=== PATIENT | male | born 1995 | race Caucasian/White ===

== ENCOUNTER → 2023-12-30 | Outpatient (CLI) | payer BC ==
[2023-12-30 22:05] LABS: BUN/Creat Ratio 7.73 Ratio (12.00-20.00); Blood Urea Nitrogen 8.5 mg/dL (9.0-27.0); Chol/HDL Ratio 4.42 Ratio; Glucose 81 mg/dL (70-110); LDL Cholesterol,Calculated 122.2 mg/dL (0.0-131.0)
[2023-12-30 22:06] LABS: ALT 10 U/L (10-49); AST 17 U/L (14-35); Albumin 4.3 g/dL (3.8-4.9); Albumin/Globulin Ratio 1.95 Ratio (1.60-3.17); Alkaline Phosphatase 58 U/L (41-126); Calcium 9.2 mg/dL (8.7-10.3); Carbon Dioxide 21.4 mmol/L (21.6-31.8); Chloride 106 mmol/L (96-109); Globulin 2.2 g/dL (1.6-3.3); Potassium 4.1 mmol/L (3.5-5.5); Sodium 139 mmol/L (135-145); Total Bilirubin 0.7 mg/dL (0.3-1.2); Total Protein 6.5 g/dL (6.2-8.2)
== END | disposition home or self-care (01) ==
LOC: LABWHC1 13:32
PROVIDERS: ATTEND Family Medicine
DX: F64.0 Transsexualism (principal)
CPT/HCPCS: 36415; 80053; 80061; 84403

== ENCOUNTER → 2024-06-16 | Outpatient (CLI) | payer BC ==
--- NOTE | 2024-06-16 17:04 | P.SLEEP ---
History of Present Illness H&P Date: 06/16/24 Chief Complaint: Chronic hypersomnia This is a 29-year-old male patient presenting with symptoms of chronic hypersomnia and fatigue and poor sleep quality. The patient reports loud snoring. He is currently . However, he has been told by his ex- that he used to snore quite loud. Over the years, the patient has lost approximately 100 pounds by changing his diet and exercise. He used to be as high as 310 pounds and his current weight is down to 225. His symptoms have gotten better since he lost weight. However, he continues to snore and his sleep is fragmented and he is having excessive fatigue and tiredness and sleepiness during the day. He sleeps on his side and he is a mouth breather. His mother has obstructive sleep apnea. The patient gets up at least once or twice in the middle of the night to urinate. He goes to bed around 9 PM, wakes at 5 AM in the morning and he uses an alarm. On weekends, he gets up at 7 AM in the morning. 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 Denies falling asleep while driving. No history of any motor vehicle accidents because of feeling drowsy or sleepy. He has up to 3 red bull drinks on a daily basis. No smoking. No alcoholism. No substance abuse. No restlessness in lower extremities. No sleepwalking or sleep talking. No anxiety or panic attacks. He has low testosterone levels and the patient is currently on testosterone supplements. No sleep paralysis. No hallucinations. No cataplexy. Review of Systems Constitutional: Reports daytime sleepiness, Reports fatigue, Reports weight loss Eyes: denies as per HPI, denies blurred vision, denies bulging eye, denies decreased vision, denies diplopia, denies discharge, denies dry eye, denies irritation, denies itching, denies pain, denies photophobia, denies loss of peripheral vision, denies loss of vision, denies tunnel vision/blind spots Ears: deny: decreased hearing, ear discharge, earache, tinnitus Ears, nose, mouth and throat: Reports as per HPI Breasts: absent: as per HPI, gynecomastia Cardiovascular: Reports as per HPI Respiratory: Reports snoring Gastrointestinal: Reports as per HPI Genitourinary: Reports as per HPI Musculoskeletal: Reports as per HPI Musculoskeletal: absent: ankle pain, ankle stiffness, ankle swelling, as per HPI, elbow pain, elbow stiffness, elbow swelling, foot pain, foot stiffness, foot swelling, hand pain, hand stiffness, hand swelling, hip pain, hip stiffness, hip swelling, knee pain, knee stiffness, knee swelling, shoulder pain, shoulder stiffness, shoulder swelling, wrist pain, wrist stiffness, wrist swelling Integumentary: Reports as per HPI Neurological: Reports as per HPI Psychiatric: Reports hypersomnia, Reports sleep disturbances Endocrine: Reports as per HPI, Reports fatigue Hematologic/Lymphatic: Reports as per HPI Physical Exam The patient's blood pressure is 126/80, pulse 60, respirations 16, weight is 225 with a BMI of 31.6, temperature is 98 F and the pulse ox is 98% room air oxygen. The patient appeared well nourished and normally developed. Vital signs as documented. Head exam is unremarkable. No scleral icterus or corneal arcus noted. Neck is without jugular venous distension, thyromegaly, or carotid bruits. Carotid upstrokes are brisk bilaterally. Mallampati class IV Lungs are clear to auscultation and percussion. Cardiac exam reveals the PMI to be normally sized and situated. Rhythm is regular. First and second heart sounds normal. No murmurs, rubs or gallops. Abdominal exam reveals normal bowel sounds, no masses, no organomegaly and no aortic enlargement. Extremities are nonedematous and both femoral and pedal pulses are normal. Examination of the skin revealed no evidence of significant rashes, suspicious appearing nevi or other concerning lesions. Neurologically, the patient is awake and alert and the patient does not have any focal neurological deficit. Cranial nerves are essentially intact. Assessment and Plan Plan: Chronic fatigue and sleepiness with an Buhl score of 5. Increase suspicion for obstructive sleep apnea with history of snoring and sleep fragmentation along with chronic fatigue and sleepiness. The patient was morbidly obese and he managed to lose 100 pounds at least. His current body mass index is 31.6. Symptoms have gotten better with weight loss although the patient has not completely recovered. Obesity, BMI of 31.6 Mallampati class IV Hypotestosteronism, currently on testosterone supplements. Plan Encourage further weight loss Maintain good sleep hygiene measures Avoid driving especially when feeling drowsy or sleepy Maintain regular sleep schedule Screening polysomnography to evaluate the presence and severity of sleep apnea. Recommendations are to follow based on the results of the sleep study. Time with Patient: Greater than 30 Sleep Note - Sleep Note Sleep Note: Temperature: Pulse Rate: Respiratory Rate: Blood Pressure: SpO2: Height: Weight: BMI: Neck Circumference:
== END ==
LOC: 3 N SLEEP 15:45
PROVIDERS: ATTEND Internal Medicine Critical Care Medicine
DX: G47.33 Obstructive sleep apnea (adult) (pediatric) (principal); R53.82 Chronic fatigue, unspecified; E66.01 Morbid (severe) obesity due to excess calories; Z68.31 Body mass index [BMI] 31.0-31.9, adult
CPT/HCPCS: 99211

== ENCOUNTER 2024-07-22 19:50 | Outpatient (CLI) | payer BC ==
--- NOTE | 2024-07-27 22:27 | P.PCN ---
Date of Procedure: 07/22/24 Operative Findings: Polysomnography report Date of service is 07/22/2024 History This is a 29-year-old male patient presenting with symptoms of chronic hypersomnia and fatigue and poor sleep quality. The patient reports loud snoring. He is currently . However, he has been told by his ex- t hat he used to snore quite loud. Over the years, the patient has lost approximately 100 pounds by changing his diet and exercise. He used to be as high as 310 pounds and his current weight is down to 225. His symptoms have gotten better since he lost weight. However, he continues to snore and his sleep is fragmented and he is having excessive fatigue and tiredness and sleepiness during the day. He sleeps on his side and he is a mouth breather. His mother has obstructive sleep apnea. The patient gets up at least once or twice in the middle of the night to urinate. He goes to bed around 9 PM, wakes at 5 AM in the morning and he uses an alarm. On weekends, he gets up at 7 AM in the morning. 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 Denies falling asleep while driving. No history of any motor vehicle accidents because of feeling drowsy or sleepy. He has up to 3 red bull drinks on a daily basis. No smoking. No alcoholism. No substance abuse. No restlessness in lower extremities. No sleepwalking or sleep talking. No anxiety or panic attacks. He has low testosterone levels and the patient is currently on testosterone supplements. No sleep paralysis. No hallucinations. No cataplexy. Physical findings Weight is 225 pounds with a body mass index of 31.6 Technical description The patient was studied using a standard complex polysomnography protocol that included recording of the Lead II EKG, Central, occipital and frontal EEG, right and left outer canthus EOG, submental EMG, right and left anterior tibialis EMG, respiratory airflow by thermocouple and or pressure/flow transducer, respiratory efforts by abdominal and thoracic PVDF belts, oxygen saturation by cable oximetry. Position by observation synchronized the PSG. Equipment used: [employer]. Sleep architecture the total recording Time was 449.0 minutes. The total sleep time was 419.5 minutes. The wake after sleep onset time was 10 minutes. The overall sleep efficiency was 93.4%. The latency to sleep onset was 20 minutes and the latency to REM sleep was 86 minutes. The sleep architecture was characterized by 3.3% stage I, 76.6% stage II, 0% stage III and a total of 22.9% REM sleep. The total arousal index was 5.1. Respiratory analysis The respiratory analysis demonstrated a total of 91 obstructive events of which 0 were obstructive apneas, 0 were mixed apneas and 91 were obstructive hypopneas. The resulting AHI was 9.4. Disease was worse during REM sleep with an AHI of 28.1 during REM. Oxygenation analysis The pulse ox while awake was 95%. The lowest oxygen saturation was 81% and the patient spent approximately 4 minutes of the recording duration below pulse ox of 89% accounted for approximately 0.9% of the overall sleep time. Cardiac summary The average heart rate was 68 with a minimum heart rate of 61 and a maximum heart rate of 77 Periodic movement events None Arousal events There was a total of 36 arousals index of 5.1. Respiratory arousal index was 0.6 Assessment Mild ZACH with an AHI of 9.4. Disease was worse during REM sleep with an AHI of 28.1 during REM No significant nocturnal oxygen saturation. Minimum pulse ox during REM sleep was 81% No periodic limb movement activity Minor abnormalities sleep architecture with representation of stage II sleep and absent delta wave Adequate sleep efficiency of 93.4% Chronic fatigue and sleepiness with an Hurt score of 5. History of obesity the patient was morbidly obese and he managed to lose 100 pounds at least. His current body mass index is 31.6. Symptoms have gotten better with weight loss although the patient has not completely recovered. Obesity, BMI of 31.6 Mallampati class IV Hypotestosteronism, currently on testosterone supplements. Plan Encourage further weight loss Maintain good sleep hygiene measures Avoid driving especially when feeling drowsy or sleepy Maintain regular sleep schedule Will discussed the findings with the patient. Will offer CPAP therapy if the patient is interested to undertake the treatment. Noted his disease is worse during REM sleep. His baseline AHI is mildly impaired with an AHI of 9.4.
== END 2024-07-23 05:25 | disposition home or self-care (01) ==
LOC: 3 N SLEEP 19:50
PROVIDERS: ATTEND Internal Medicine Critical Care Medicine
DX: G47.33 Obstructive sleep apnea (adult) (pediatric) (principal); E66.01 Morbid (severe) obesity due to excess calories; E29.1 Testicular hypofunction; Z68.31 Body mass index [BMI] 31.0-31.9, adult
CPT/HCPCS: 95810